=== PATIENT | male | born 1980 | race Caucasian/White ===

== ENCOUNTER 2017-05-05 11:11 | Emergency (ER) | payer MEDICAID ==
[~2017-05-05] VITALS: Ht 172.7 cm; Wt 111.6 kg
[2017-05-05 11:17] VITALS: BP 130/64
[2017-05-05] MEDS: DICYCLOMINE HCL LIQUID 20 MG, ALUMINUM HYD/MAG/SIMETHICONE 30 ML, LIDOCAINE VISCOUS 2% ... PO ONE ×3 (12:21)
[2017-05-05] MEDS: NACL 0.9% 2,000 ML IV ONE (12:21)
[2017-05-05 12:38] LABS: CARBON DIOXIDE 29.3 mmol/L (21-32); TOTAL BILIRUBIN 0.6 mg/dL (0.0-1.0)
[2017-05-05 12:45] LABS: ALBUMIN 3.7 g/dL (3.4-5.0); ANION GAP 8.9 (8-16); POTASSIUM 4.2 mmol/L (3.5-5.1)
[2017-05-05 13:32] VITALS: BP 128/78
== END 2017-05-05 13:32 | disposition home or self-care (01) ==
LOC: MED 11:11
DX: K44.9 Diaphragmatic hernia without obstruction or gangrene (principal); R11.2 Nausea with vomiting, unspecified; R19.7 Diarrhea, unspecified; Z88.0 Allergy status to penicillin
CPT/HCPCS: 36415; 80053; 81002; 83690; 96360; 99284; J7030

== ENCOUNTER 2017-06-02 08:32 | Emergency (ER) | payer MEDICAID, OTHER ==
[~2017-06-02] VITALS: Ht 175.3 cm; Wt 111.8 kg
[2017-06-02 08:41] VITALS: BP 121/77
--- NOTE | 2017-06-02 08:45 | NUR ---
PT AMBULATED TO BED 4.
--- NOTE | 2017-06-02 08:52 | NUR ---
37M BIB SELF C/O EPIGASTRIC PAIN, ACHING, NON-RADIATING, 3/10 X 3 DAYS; PT STATES " IT'S MY HIATAL HERNIA"; PT C/O 2 EPISODES OF VOMITTING TODAY, WITH 4-5 EPISODES OF DIARRHEA TODAY; ABDOMEN SOFT, NON-TENDER, ACTIVE BOWEL SOUNDS X 4 QUADRANTS; PT AA&OX4, PERRLA; PT STATES " I FEEL DIZZY BECAUSE I'M DEHYDRATED"; PT STATES NO TRAUMA OR INJURY TO HEAD AT THIS TIME; PT STATES NO VISION CHANGES OR BLURRY VISION AT THIS TIME; BL LUNG SOUNDS CLEAR, RR EVEN/UNLABORED, SKIN IS WARM/DRY/INTACT AT THIS TIME; STEADY GAIT; PT RESTING IN BED WITH HOB ELEVATED AND IN LOWEST POSITION; POSITIONED FOR COMFORT; ER MD MADE AWARE OF STATUS. WILL CONTINUE TO MONITOR.
--- NOTE | 2017-06-02 09:17 | NUR ---
ER MD DR. VINSON EVALUATING PT AT BEDSIDE.
[2017-06-02] MEDS ORDERED: ONDANSETRON 8 MG in NACL 0.9% 50 ML IV PRN (09:50)
[2017-06-02] MEDS ORDERED: NACL 0.9% 1,000 ML IV ONE (09:50)
[2017-06-02] MEDS ORDERED: ONDANSETRON 4 MG/2 ML VIAL IVP ONE (10:05)
[2017-06-02] MEDS ORDERED: DICYCLOMINE HCL LIQUID 20 MG, ALUMINUM HYD/MAG/SIMETHICONE 30 ML, LIDOCAINE VISCOUS 2% ... PO ONE ×3 (10:25)
[2017-06-02] MEDS ORDERED: LIDOCAINE VISCOUS 2% 20 ML UDC ONE (10:39)
--- NOTE | 2017-06-02 10:44 | NUR ---
IV removed, catheter intact and site benign. Applied folded 4x4 gauze and tape to stop bleeding. PT TOLERATED PROCEDURE WELL.
[2017-06-02 10:54] VITALS: BP 137/75
--- NOTE | 2017-06-02 10:54 | NUR ---
Patient discharged with v/s stable. Written and verbal after care instructions given and explained. Patient alert, oriented and verbalized understanding of instructions. Ambulatory with steady gait. All questions addressed prior to discharge. ID band removed. Patient advised to follow up with PMD. Rx of ZOFRAN ODT 4MG given. Patient educated on indication of medication including possible reaction and side effects. Opportunity to ask questions provided and answered.
[2017-06-02 11:03] LABS: APPEARANCE,URINE HAZY (CLEAR); BILIRUBIN,URINE NEGATIVE (NEGATIVE); BLOOD, URINE NEGATIVE (NEGATIVE); COLOR,URINE YELLOW (YELLOW); LEUKOCYTE ESTERASE ,URINE NEGATIVE (NEGATIVE); NITRITE, URINE NEGATIVE (NEGATIVE); UGLUCOSE NEGATIVE (NEGATIVE)
== END 2017-06-02 10:54 | disposition home or self-care (01) ==
LOC: MED 08:32
DX: R10.13 Epigastric pain (principal); K21.9 Gastro-esophageal reflux disease without esophagitis; Z87.19 Personal history of other diseases of the digestive system; Z88.0 Allergy status to penicillin
CPT/HCPCS: 81003; 96361; 96374; 99284; J2405; J7030

== ENCOUNTER 2017-07-21 11:44 | Emergency (ER) | payer MEDICAID, OTHER ==
[~2017-07-21] VITALS: Ht 172.7 cm; Wt 115.7 kg
[2017-07-21 12:30] VITALS: BP 122/63
[2017-07-21] MEDS ORDERED: ACETAMINOPHEN-COD #3 TABLET (12:34)
--- NOTE | 2017-07-21 12:51 | NUR ---
patient ambulated to of #3
--- NOTE | 2017-07-21 13:01 | NUR ---
37/M BIB SELF FOR ANXIETY. STOPPED DRINKING 07/19. PT STS NERVES STARTED MESSING WITH HIM. HX ALCOHOLISM, PTSD. SX DENIES. AX PCN. . DENIES N/V/D; SKIN IS PINK/WARM/DRY; AAOX4 WITH EVEN AND STEADY GAIT; LUNGS CLEAR BL; HR EVEN AND REGULAR; PT DENIES ANY FEVER, CP, SOB, OR COUGH AT THIS TIME; PATIENT STATES PAIN OF 6/10 AT THIS TIME; VSS; PATIENT POSITIONED FOR COMFORT; HOB ELEVATED; BEDRAILS UP X2; BED DOWN. ER MD MADE AWARE OF PT STATUS.
[2017-07-21 13:44] VITALS: BP 110/73
== END 2017-07-21 13:44 | disposition home or self-care (01) ==
LOC: MED 11:44
DX: F10.231 Alcohol dependence with withdrawal delirium (principal); K21.9 Gastro-esophageal reflux disease without esophagitis; Z88.0 Allergy status to penicillin
CPT/HCPCS: 99283

== ENCOUNTER 2017-09-14 09:11 | Emergency (ER) | payer MEDICAID, OTHER ==
[~2017-09-14] VITALS: Ht 172.7 cm; Wt 113.4 kg
[~2017-09-14 09:11] MED LIST: ACETAMINOPHEN-COD #3 TABLET
[2017-09-14 09:37] VITALS: BP 140/85
--- NOTE | 2017-09-14 09:41 | NUR ---
PT AMBULATED TO BED 3
[2017-09-14] MEDS ORDERED: ONDANSETRON 4 MG/2 ML VIAL IVP ONE (09:45)
[2017-09-14] MEDS ORDERED: FAMOTIDINE 20 MG/2 ML VIAL IVP ONE (09:45)
[2017-09-14] MEDS ORDERED: NACL 0.9% 1,000 ML IV ONE (09:45)
--- NOTE | 2017-09-14 09:45 | NUR ---
PATIENT PRESENTS TO ED WITH MID ABD PAIN X2 DAYS WITH N/V/D HX HIATIAL HERNIA; SKIN IS PINK/WARM/DRY; AAOX4 WITH EVEN AND STEADY GAIT; LUNGS CLEAR BL; HR EVEN AND REGULAR; PT DENIES ANY FEVER, CP, SOB, OR COUGH AT THIS TIME; PATIENT STATES PAIN OF 6/10 AT THIS TIME; VSS; PATIENT POSITIONED FOR COMFORT; HOB ELEVATED; BEDRAILS UP X2; BED DOWN. ER MD MADE AWARE OF PT STATUS.
[2017-09-14] MEDS ORDERED: DICYCLOMINE HCL LIQUID 10 MG/5 ML UDC PO ONE (09:55)
[2017-09-14] MEDS ORDERED: ALUMINUM HYD/MAG/SIMETHICONE 30 ML UDC PO ONE (09:55)
[2017-09-14 10:41] VITALS: BP 120/79
--- NOTE | 2017-09-14 10:41 | NUR ---
Patient discharged with v/s stable. Written and verbal after care instructions given and explained. Patient alert, oriented and verbalized understanding of instructions. Ambulatory with steady gait. All questions addressed prior to discharge. ID band removed. Patient advised to follow up with PMD. Rx of MADIHA ABREU given. Patient educated on indication of medication including possible reaction and side effects. Opportunity to ask questions provided and answered.
== END 2017-09-14 10:41 | disposition home or self-care (01) ==
LOC: MED 09:11
DX: K44.9 Diaphragmatic hernia without obstruction or gangrene (principal); R10.13 Epigastric pain; K21.9 Gastro-esophageal reflux disease without esophagitis; Z79.899 Other long term (current) drug therapy; Z88.0 Allergy status to penicillin
CPT/HCPCS: 96361; 96374; 96375; 99284; J2405; J3490; J7030

== ENCOUNTER 2017-11-11 06:30 | Emergency (ER) | payer MEDICAID ==
[~2017-11-11] VITALS: Ht 172.7 cm; Wt 114.9 kg
[2017-11-11 06:35] VITALS: BP 162/99
[2017-11-11] MEDS ORDERED: NACL 0.9% 1,000 ML IV ONE (06:40)
[2017-11-11] MEDS ORDERED: LORazepam 2 MG/ML VIAL IVP ONE (06:40)
--- NOTE | 2017-11-11 06:40 | NUR ---
AMBULATED TO ER BED 4
--- NOTE | 2017-11-11 06:45 | NUR ---
CIWA score assessed at 12. Notified Dr Disla.
--- NOTE | 2017-11-11 06:53 | NUR ---
2MG ATIVAN ADMINISTERED TO PT.
[2017-11-11 07:03] LABS: BASOPHILS # (AUTO) 0.1 K/uL (0.00-0.22); BASOPHILS % (AUTO) 0.7 % (0.0-2.0); EOSINOPHILS # (AUTO) 0.2 K/uL (0-0.4); EOSINOPHILS % (AUTO) 2.5 % (0.0-4.0); HEMATOCRIT 44.4 % (36-52); LYMPHOCYTES # (AUTO) 2.4 K/uL (2.0-11.5); LYMPHOCYTES % (AUTO) 32.2 % (20.5-51.1); MEAN CORPUSCULAR HEMOGLOBIN 32 pg (27-31); MEAN CORPUSCULAR HGB CONC 34 g/dL (33-37); MEAN CORPUSCULAR VOLUME 94.9 fL (80-94); MONOCYTES # (AUTO) 0.6 K/uL (0.8-1.0); MONOCYTES % (AUTO) 8.3 % (1.7-9.3); NEUTROPHILS # (AUTO) 4.2 K/uL (1.8-7.7); NEUTROPHILS % (AUTO) 56.3 % (42.2-75.2); PLATELET COUNT (AUTO) 229 K/uL (140-450); RED BLOOD CELL COUNT(AUTO) 4.67 MIL/uL (4.20-6.10); RED CELL DISTRIBUTION WIDTH 13.2 % (11.6-13.7); WHITE BLOOD COUNT (AUTO) 7.4 K/uL (4.8-10.8)
--- NOTE | 2017-11-11 07:05 | NUR ---
37Y/M C/O ALCOHOL WITHDRAWL, PT HAS TREMORS, ANXIOUS, STATES HE FEELS "TERRIBLE". PT STATES HE IS UNABLE TO QUIT DRINKING. PT LAST HAD 2 BEERS AT 4AM AND STATES HE NORMALLY DRINKS "12-14 BEERS A DAY". PT IS AA&OX4, ANXIOUS, STATES HE HAS BEEN UNABLE TO SLEEP AND DRANK BEERS THIS AM TO "CALM" HIM. PMH SLEEP APNEA, PTSD, ALCOHOLIC ALLERGY TO PCN
[2017-11-11] MEDS ORDERED: ONDANSETRON 4 MG/2 ML VIAL IVP ONE (07:20)
--- NOTE | 2017-11-11 07:24 | NUR ---
Pt report given to JORGE TENORIO. Transfer of care at this time.
[2017-11-11 07:34] LABS: ANION GAP 14.9 (8-16); ASPARTATE AMINOTRANSFERASE 26 U/L (15-37); CHLORIDE 103 mmol/L (98-107); CREATININE 0.8 mg/dL (0.7-1.3); GFR ARICAN-AMERICAN 141 mL/min (>90); GLUCOSE 102 mg/dL (74-106); POTASSIUM 3.9 mmol/L (3.5-5.1); SALICYLATE 2.9 mg/dL (2.8-20.0); SODIUM SERUM 138 mmol/L (136-145); TOTAL BILIRUBIN 0.4 mg/dL (0.0-1.0); UREA NITROGEN, BLOOD 10 mg/dL (7-18)
[2017-11-11 07:44] LABS: ACETAMINOPHEN < 0.5 ug/ml (10-30)
[2017-11-11 08:08] VITALS: BP 158/86
== END 2017-11-11 08:11 | disposition home or self-care (01) ==
LOC: MED 06:30
DX: F10.239 Alcohol dependence with withdrawal, unspecified (principal); F41.9 Anxiety disorder, unspecified; F43.10 Post-traumatic stress disorder, unspecified; Z88.0 Allergy status to penicillin
CPT/HCPCS: 36415; 80053; 85025; 93005; 96361; 96374; 96375; 99285; G0480; G0482; J2060; J2405

== ENCOUNTER 2018-01-09 13:19 | Emergency (ER) | payer MEDICAID ==
[~2018-01-09] VITALS: Ht 172.7 cm; Wt 116.7 kg
[2018-01-09 13:30] VITALS: BP 123/95
--- NOTE | 2018-01-09 13:33 | NUR ---
PT AMBULATES TO BED 4, REPORT GIVEN TO JORGE TENORIO
--- NOTE | 2018-01-09 13:35 | NUR ---
37 YO M BIB SELF W/ C/O N/V/D, DIFFUSE ABDOMINAL PAIN X 4 DAYS WITH DIZZINESS/TIRED. PT DENIES FEVER/CHILLS. REPORTS ANYTHING HE EATS OR DRINKS COMES STRAIGHT OUT DIARRHEA. HAS EATEN ONE SMALL MEAL TODAY. FEELS FAINT. AAOX4. GCS15. CMS INTACT. RR EVEN AND UNLABORED. LUNSG BILATERALLY CLEAR. ER MD DE NOTIFIED. PT NEEDS MET. SAFETY PRECAUTIONS IN PLACE. WILL CONTINUE TO MONITOR.
[2018-01-09] MEDS ORDERED: ONDANSETRON 4 MG ODT PO ONE (13:50)
[2018-01-09] MEDS ORDERED: DIPHENOXYLATE /ATROPINE 2.5 MG TAB PO ONE (13:50)
[2018-01-09 14:16] VITALS: BP 123/95
--- NOTE | 2018-01-09 14:16 | NUR ---
Patient discharged with v/s stable. Written and verbal after care instructions given and explained. Patient alert, oriented and verbalized understanding of instructions. Ambulatory with steady gait. All questions addressed prior to discharge. ID band removed. Patient advised to follow up with PMD. Rx of Zofran and Lomotil given. Patient educated on indication of medication including possible reaction and side effects. Opportunity to ask questions provided and answered.
== END 2018-01-09 14:20 | disposition home or self-care (01) ==
LOC: MED 13:19
DX: R11.10 Vomiting, unspecified (principal); R19.7 Diarrhea, unspecified; F10.99 Alcohol use, unspecified with unspecified alcohol-induced disorder; K21.9 Gastro-esophageal reflux disease without esophagitis; Z88.0 Allergy status to penicillin; Z79.899 Other long term (current) drug therapy
CPT/HCPCS: 99283; S0119